=== PATIENT | male | born 1950 | race Caucasian/White ===

== ENCOUNTER → 2019-07-10 09:36 | Outpatient (CLI) | payer MEDICARE, OTHER, SELFPAY ==
--- NOTE | 2019-07-10 | DI.US.S_ITS ---
PROCEDURE: US RENAL COMPLETE INDICATIONS: CKD TECHNIQUE: Real-time scanning was performed of the kidneys and bladder, with image documentation. COMPARISON: None. FINDINGS: Kidneys: Kidneys are normal in size. Right kidney measures 9.6 cm long; left kidney measures 10.0 cm long. Right renal cortical thickness is 1.6 cm; left renal cortical thickness is 1.2 cm. Renal cortical echotexture is normal. No hydronephrosis or nephrolithiasis. No suspicious solid mass lesions. Multiple simple appearing bilateral renal cysts measuring up to 2.0 cm on the right and up to 4.0 cm on the left. Bladder: Pre-void bladder volume is 470 mL. Post-void residual is one mL. Pre-void images demonstrate no intraluminal masses or stones. On pre-void images, both of them ureteral jets are noted with color Doppler interrogation. (Of note, ureteral jets may not be detectable in up to 25% of cases due to insufficient differences in specific gravity between ureteral and bladder urine). Miscellaneous: No free pelvic fluid. IMPRESSION: Multiple bilateral simple appearing renal cysts. No hydronephrosis. Dictated by: Lm Albright M.D. on 07/10/2019 at 10:23 Approved by: Lm Albright M.D. on 07/10/2019 at 10:24
== END ==
PROVIDERS: Visit Provider Internal Medicine
DX: N18.9 Chronic kidney disease, unspecified (principal); N28.1 Cyst of kidney, acquired
CPT/HCPCS: 76770